=== PATIENT | female | born 1985 | race Caucasian/White ===

== ENCOUNTER 2016-12-25 13:10 | Emergency (ER) | payer BC ==
[~2016-12-25] VITALS: Ht 162.6 cm; Wt 71.7 kg
[2016-12-25] MEDS ORDERED: oxyCODONE/APAP (5/325 MG) 1 UDTAB TABLET ONE (13:21)
[2016-12-25] MEDS ORDERED: oxyCODONE/APAP (5/325 MG) 1 UDTAB TABLET PO ONE (13:30)
[2016-12-25 16:16] VITALS: BP 142/88
== END 2016-12-25 16:17 | disposition home or self-care (01) ==
LOC: ER 13:11
DX: S43.401A Unspecified sprain of right shoulder joint, initial encounter (principal); S83.91XA Sprain of unspecified site of right knee, initial encounter; S93.401A Sprain of unspecified ligament of right ankle, initial encounter; S20.211A Contusion of right front wall of thorax, initial encounter; R91.1 Solitary pulmonary nodule; J45.909 Unspecified asthma, uncomplicated; M41.9 Scoliosis, unspecified; F31.9 Bipolar disorder, unspecified; Z91.040 Latex allergy status; Z88.2 Allergy status to sulfonamides; Z88.6 Allergy status to analgesic agent; Z88.8 Allergy status to other drugs, medicaments and biological substances; V49.49XA Driver injured in collision with other motor vehicles in traffic accident, initial encounter; Y93.89 Activity, other specified; Y92.89 Other specified places as the place of occurrence of the external cause; Y99.9 Unspecified external cause status
CPT/HCPCS: 71010; 73030; 73564; 73610; 74176; 84703; 99285; A4606; Z7610